=== PATIENT | female | born 1985 | race Caucasian/White ===

== ENCOUNTER 2017-02-21 00:48 | Observation (INO) | payer MEDICAID, OTHER ==
[~2017-02-21] VITALS: Ht 165.1 cm; Wt 83.5 kg
[~2017-02-21 00:48] MED LIST: HYDR25TA PO; TNFMISC
[2017-02-21] MEDS ORDERED: PREN1TAB89 PO (01:52)
[2017-02-21 01:54] VITALS: BP 123/78
[2017-02-21 01:55] LABS: APPEARANCE,URINE TURBID (CLEAR); GLUCOSE, URINE (UA) NEGATIVE (NEGATIVE); KETONES,URINE NEGATIVE (NEGATIVE); LEUKOCYTE ESTERASE ,URINE NEGATIVE (NEGATIVE); OCCULT BLOOD,URINE NEGATIVE (NEGATIVE); PROTEIN,URINE NEGATIVE (NEGATIVE)
[2017-02-21 01:57] LABS: ADD UA MICROSCOPIC NO
== END 2017-02-21 03:30 | disposition left against medical advice (07) ==
LOC: 4S 00:48
PROVIDERS: ADMIT Obstetrics & Gynecology; ATTEND Obstetrics & Gynecology
DX: O26.892 Other specified pregnancy related conditions, second trimester (principal); R10.9 Unspecified abdominal pain; Z3A.21 21 weeks gestation of pregnancy
CPT/HCPCS: 36415; 59025; 76815; 80307 ×8; 81003; 89060; G0378

== ENCOUNTER 2017-02-24 05:25 | Observation (INO) | payer MEDICAID ==
[~2017-02-24] VITALS: Ht 165 cm; Wt 83.5 kg
[~2017-02-24 05:25] MED LIST changes: -HYDR25TA PO; +PREN1TAB89 PO
[2017-02-24] MEDS ORDERED: OXYTOCIN 30 UNITS/LACT RINGERS 500 ML IV ONE (05:48)
[2017-02-24] MEDS ORDERED: FentaNYL CITRATE-PF 100 MCG/2 ML VIAL ONE (05:53)
[2017-02-24] MEDS: FentaNYL CITRATE-PF 100 MCG/2 ML VIAL IVP PRN ×2 (05:57→05:58)
[2017-02-24] MEDS: RINGERS SOLUTION,LACTATED 1,000 ML IV SCH ×2 (05:58→06:37)
[2017-02-24] MEDS ORDERED: CITRIC ACID/SODIUM CITRATE 30 ML SOLUTION UDCUP PO PRN (06:00)
[2017-02-24] MEDS ORDERED: METOCLOPRAMIDE HCL 5 MG/ML 2 ML VIAL IVP PRN (06:00)
[2017-02-24 06:26] LABS: HEMATOCRIT 34.5 % (36-46); HEMOGLOBIN 11.4 g/dL (12.0-16.0); MEAN CORPUSCULAR HEMOGLOBIN 26.7 pg (26.0-34.0); MEAN CORPUSCULAR HGB CONC 33.1 G/dL (31.0-37.0); MEAN CORPUSCULAR VOLUME 81 fL (80-100); RED BLOOD CELL COUNT(AUTO) 4.28 MIL/uL (4.00-5.20); RED CELL DISTRIBUTION WIDTH 18.1 % (11.5-14.5)
[2017-02-24 06:30] LABS: WHITE BLOOD COUNT (AUTO) 42.5 K/uL (4.5-11.0)
[2017-02-24] MEDS ORDERED: DEXTROSE 5% IV ONE (06:45)
[2017-02-24] MEDS ORDERED: WATER IV ONE (06:45)
[2017-02-24] MEDS ORDERED: GENTAMICIN SULFATE IV ONE (06:45)
[2017-02-24] MEDS ORDERED: AMPICILLIN SODIUM 2 GM/NS 100 ML IV ONE (06:45)
[2017-02-24] MEDS ORDERED: ONDANSETRON HCL 4 MG/2 ML VIAL IVP PRN (07:00)
[2017-02-24 07:06] LABS: BAND NEUTROPHILS % (MANUAL) 31 % (1-5); LYMPHOCYTES % (MANUAL) 1 % (22-44); REACTIVE LYMPHOCYTES 1 % (0-0); TOTAL CELLS COUNTED 100
[2017-02-24 07:08] LABS: RBC MORPHOLOGY COMMENT ABNORMAL RBC MORPH; WBC MORPHOLOGY TOXIC GRANULATION
[2017-02-24] MEDS ORDERED: OXYGEN THERAPY IH SCH ×2 (08:00)
[2017-02-24] MEDS ORDERED: LANOLIN 7 GM OINTMENT TP PRN (08:30)
[2017-02-24] MEDS ORDERED: IBUPROFEN 600 MG TABLET PO PRN (08:30)
[2017-02-24] MEDS ORDERED: GLYCERIN/WITCH HAZEL LEAF 40 PADS JAR TP PRN (08:30)
[2017-02-24] MEDS ORDERED: OxyCODONE HCL/ACETAMINOPHEN 5-325 MG TABLET PO PRN ×2 (08:30)
[2017-02-24] MEDS ORDERED: BENZOCAINE 20%/MENTHOL 56 GM SPRAY CANISTER TP PRN (08:30)
[2017-02-24] MEDS ORDERED: MEASLES/MUMPS/RUBELLA VACCINE, LIVE 0.5 ML/VIAL SQ ONE (08:30)
[2017-02-24] MEDS ORDERED: RINGERS SOLUTION,LACTATED 1,000 ML IV ONE (08:30)
[2017-02-24] MEDS ORDERED: MAGNESIUM HYDROXIDE SUSPENSION 30 ML UDCUP PO SCH (09:00)
[2017-02-24] MEDS ORDERED: MIDAZOLAM HCL 2 MG/2 ML VIAL IVP ONE (11:29)
[2017-02-24] MEDS ORDERED: KETAMINE HCL 50 MG/ML 10 ML VIAL IVP ONE (11:29)
[2017-02-24] MEDS ORDERED: OXYTOCIN 10 UNITS/ML VIAL IM ONE (11:29)
[2017-02-24 17:26] LABS: RUBELLA SCREEN (IGG) IMMUNE (IMMUNE)
== END 2017-02-24 11:30 | disposition left against medical advice (07) ==
LOC: 4S 05:25
PROVIDERS: ADMIT Obstetrics & Gynecology; ATTEND Obstetrics & Gynecology
DX: O42.912 Preterm premature rupture of membranes, unspecified as to length of time between rupture and onset of labor, second trimester (principal); O41.1220 Chorioamnionitis, second trimester, not applicable or unspecified; Z3A.21 21 weeks gestation of pregnancy; Z37.1 Single stillbirth
CPT/HCPCS: 36415; 59409; 85025; 86592; 86762; 86850; 86900; 86901; 87340; 88307; 96365; 96367; G0378; J0290; J1580; J2250; J2590; J3010; J3490; J7060; J7120

== ENCOUNTER 2017-02-26 18:40 | Inpatient (IN) | payer MEDICAID ==
[~2017-02-26] VITALS: Ht 165.1 cm; Wt 85.7 kg
[2017-02-26] MEDS ORDERED: KETOROLAC TROMETHAMINE 30 MG/ML VIAL IVP ONE (19:45)
[2017-02-26] MEDS ORDERED: SODIUM CHLORIDE 0.9% 1,000 ML IV ONE (19:45)
[2017-02-26] MEDS ORDERED: VANCOMYCIN HCL 1 GM/D5% WATER 200 ML IV ONE (19:45)
[2017-02-26 20:28] LABS: BASOPHILS % (AUTO) 0.2 % (0.0-2.0); EOSINOPHILS % (AUTO) 2.3 % (1.0-6.0); HEMATOCRIT 32.4 % (36-46); HEMOGLOBIN 10.4 g/dL (12.0-16.0); LYMPHOCYTES # (AUTO) 1.7 K/uL (1.0-4.8); LYMPHOCYTES % (AUTO) 11.6 % (22.0-44.0); MEAN CORPUSCULAR HGB CONC 32.1 G/dL (31.0-37.0); MEAN CORPUSCULAR VOLUME 81 fL (80-100); MONOCYTES # (AUTO) 0.8 K/uL (0.1-1.0); MONOCYTES % (AUTO) 5.5 % (2.0-9.0); NEUTROPHILS # (AUTO) 12.1 K/uL (1.8-7.7); NEUTROPHILS % (AUTO) 80.4 % (40.0-70.0); PLATELET COUNT (AUTO) 255 K/uL (150-450); RED BLOOD CELL COUNT(AUTO) 4.01 MIL/uL (4.00-5.20)
[2017-02-26 20:35] LABS: ANION GAP 10 mmol/L (8-16); CALCIUM, TOTAL 8.5 mg/dL (8.8-10.5); CARBON DIOXIDE 25 mmol/L (22-29); CHLORIDE 103 mmol/L (98-107); CREATININE 0.63 mg/dL (0.60-1.30); GLOMERULAR FILTR. RATE CALC > 60 mL/min (>60); POTASSIUM 3.2 mmol/L (3.5-5.1); SODIUM SERUM 138 mmol/L (136-145); UREA NITROGEN, BLOOD 4 mg/dL (7-18)
[2017-02-26 20:37] LABS: LACTIC ACID 1.5 mmol/L (0.4-2.0)
[2017-02-26 20:44] LABS: ALANINE AMINOTRANSFERASE 12 U/L (12-78); ALBUMIN 2.5 g/dL (3.4-5.0); ASPARTATE AMINOTRANSFERASE 11 U/L (15-37); BILIRUBIN,TOTAL 0.2 mg/dL (0.1-1.0); TOTAL PROTEIN, SERUM 6.5 g/dL (6.4-8.2)
[2017-02-26 20:46] LABS: RBC MORPHOLOGY COMMENT ABNORMAL RBC MORPH
[2017-02-26] MEDS ORDERED: ACETAMINOPHEN 325 MG TABLET PO PRN ×2 (21:00→21:30)
[2017-02-26] MEDS ORDERED: ONDANSETRON HCL 4 MG/2 ML VIAL IVP PRN ×2 (21:00→21:30)
[2017-02-26] MEDS ORDERED: SODIUM CHLORIDE 0.9% 100 ML ONE (21:11)
[2017-02-26] MEDS ORDERED: IOVERSOL 350 MG/ML 100 ML VIAL ONE (21:11)
[2017-02-26] MEDS ORDERED: POTASSIUM CHL 10 MEQ/WATER 50 ML IV PRN (21:30)
[2017-02-26] MEDS ORDERED: OxyCODONE HCL/ACETAMINOPHEN 5-325 MG TABLET PO PRN (21:30)
[2017-02-26] MEDS ORDERED: MAGNESIUM HYDROXIDE SUSPENSION 30 ML UDCUP PO PRN (21:30)
[2017-02-26] MEDS ORDERED: VANCOMYCIN HCL 500 MG in DEXTROSE 5%-WATER 100 ML IV ONE (22:00)
[2017-02-26] MEDS: POTASSIUM CHLORIDE 20 MEQ ER TABLET PO PRN (22:25)
[2017-02-26] MEDS: OxyCODONE HCL/ACETAMINOPHEN 5-325 MG TABLET PO PRN (22:25)
[2017-02-26 22:34] VITALS: BP 130/79
[2017-02-27] MEDS ORDERED: PNEUMOCOCCAL VACCINE POLYVALENT 0.5 ML VIAL [PPSV23] IM ONE (02:00)
[2017-02-27] MEDS: DiphenhydrAMINE HCL 25 MG CAPSULE PO PRN ×3 (05:30→20:30)
[2017-02-27] MEDS: OxyCODONE HCL/ACETAMINOPHEN 5-325 MG TABLET PO PRN ×4 (05:30→20:30)
[2017-02-27 06:26] LABS: ANION GAP 8 mmol/L (8-16); CALCIUM, TOTAL 7.9 mg/dL (8.8-10.5); CARBON DIOXIDE 26 mmol/L (22-29); CHLORIDE 105 mmol/L (98-107); CREATININE 0.68 mg/dL (0.60-1.30); GLOMERULAR FILTR. RATE CALC > 60 mL/min (>60); POTASSIUM 3.2 mmol/L (3.5-5.1); SODIUM SERUM 139 mmol/L (136-145); UREA NITROGEN, BLOOD 6 mg/dL (7-18)
[2017-02-27 06:31] LABS: BASOPHILS % (AUTO) 0.3 % (0.0-2.0); EOSINOPHILS % (AUTO) 3.5 % (1.0-6.0); HEMATOCRIT 28.7 % (36-46); HEMOGLOBIN 9.2 g/dL (12.0-16.0); LYMPHOCYTES # (AUTO) 1.7 K/uL (1.0-4.8); LYMPHOCYTES % (AUTO) 15.2 % (22.0-44.0); MEAN CORPUSCULAR HGB CONC 31.9 G/dL (31.0-37.0); MEAN CORPUSCULAR VOLUME 82 fL (80-100); MONOCYTES # (AUTO) 0.7 K/uL (0.1-1.0); MONOCYTES % (AUTO) 6.3 % (2.0-9.0); NEUTROPHILS # (AUTO) 8.4 K/uL (1.8-7.7); NEUTROPHILS % (AUTO) 74.7 % (40.0-70.0); PLATELET COUNT (AUTO) 210 K/uL (150-450); RED BLOOD CELL COUNT(AUTO) 3.52 MIL/uL (4.00-5.20); RED CELL DISTRIBUTION WIDTH 18.1 % (11.5-14.5); WHITE BLOOD COUNT (AUTO) 11.2 K/uL (4.5-11.0)
[2017-02-27 07:10] VITALS: BP 147/111
[2017-02-27] MEDS: VANCOMYCIN HCL 1.5 GM in DEXTROSE 5%-WATER 250 ML IV SCH ×2 (07:54→15:34)
[2017-02-27] MEDS: PANTOPRAZOLE SODIUM 40 MG DR TABLET PO SCH (08:15)
[2017-02-27] MEDS: DOCUSATE SODIUM 100 MG CAPSULE PO SCH ×2 (08:15→20:30)
[2017-02-27] MEDS ORDERED: 0.9% SODIUM CHLORIDE 10 ML SYRINGE IVP PRN (11:00)
[2017-02-27 11:17] VITALS: BP 126/85
[2017-02-27] MEDS: POTASSIUM CHLORIDE 20 MEQ ER TABLET PO PRN ×2 (13:44→18:39)
[2017-02-27 15:11] VITALS: BP 154/96
[2017-02-27 19:46] VITALS: BP 136/87
[2017-02-28] MEDS: OxyCODONE HCL/ACETAMINOPHEN 5-325 MG TABLET PO PRN ×4 (00:32→14:11)
[2017-02-28] MEDS: VANCOMYCIN HCL 1.5 GM in DEXTROSE 5%-WATER 250 ML IV SCH ×3 (00:32→16:10)
[2017-02-28 00:39] VITALS: BP 140/91
[2017-02-28] MEDS: DiphenhydrAMINE HCL 25 MG CAPSULE PO PRN ×2 (03:59→12:30)
[2017-02-28 04:00] VITALS: BP 134/95
[2017-02-28 07:29] LABS: ANION GAP 6 mmol/L (8-16); CALCIUM, TOTAL 8.3 mg/dL (8.8-10.5); CARBON DIOXIDE 29 mmol/L (22-29); CHLORIDE 102 mmol/L (98-107); CREATININE 0.64 mg/dL (0.60-1.30); GLOMERULAR FILTR. RATE CALC > 60 mL/min (>60); POTASSIUM 3.7 mmol/L (3.5-5.1); SODIUM SERUM 137 mmol/L (136-145); UREA NITROGEN, BLOOD 5 mg/dL (7-18)
[2017-02-28 08:00] VITALS: BP 151/95
[2017-02-28] MEDS: DOCUSATE SODIUM 100 MG CAPSULE PO SCH (08:26)
[2017-02-28] MEDS: PANTOPRAZOLE SODIUM 40 MG DR TABLET PO SCH (08:26)
[2017-02-28 11:34] VITALS: BP 139/92
[2017-02-28 16:00] VITALS: BP 132/79
[2017-02-28 17:54] LABS: BASOPHILS % (AUTO) 0.5 % (0.0-2.0); EOSINOPHILS % (AUTO) 5.5 % (1.0-6.0); HEMATOCRIT 30.7 % (36-46); LYMPHOCYTES # (AUTO) 1.5 K/uL (1.0-4.8); LYMPHOCYTES % (AUTO) 21.7 % (22.0-44.0); MEAN CORPUSCULAR HEMOGLOBIN 26.2 pg (26.0-34.0); MEAN CORPUSCULAR HGB CONC 32.6 G/dL (31.0-37.0); MEAN CORPUSCULAR VOLUME 80 fL (80-100); MONOCYTES # (AUTO) 0.7 K/uL (0.1-1.0); MONOCYTES % (AUTO) 10.5 % (2.0-9.0); NEUTROPHILS # (AUTO) 4.3 K/uL (1.8-7.7); NEUTROPHILS % (AUTO) 61.8 % (40.0-70.0); PLATELET COUNT (AUTO) 260 K/uL (150-450); RED BLOOD CELL COUNT(AUTO) 3.82 MIL/uL (4.00-5.20); RED CELL DISTRIBUTION WIDTH 16.8 % (11.5-14.5); WHITE BLOOD COUNT (AUTO) 6.9 K/uL (4.5-11.0)
[2017-02-28 18:05] LABS: ANION GAP 5 mmol/L (8-16); CALCIUM, TOTAL 8.4 mg/dL (8.8-10.5); CARBON DIOXIDE 30 mmol/L (22-29); CHLORIDE 101 mmol/L (98-107); CREATININE 0.64 mg/dL (0.60-1.30); GLOMERULAR FILTR. RATE CALC > 60 mL/min (>60); POTASSIUM 3.7 mmol/L (3.5-5.1); SODIUM SERUM 136 mmol/L (136-145); UREA NITROGEN, BLOOD 7 mg/dL (7-18)
[2017-02-28] MEDS ORDERED: PERCT PO (18:09)
[2017-02-28 18:10] LABS: ALANINE AMINOTRANSFERASE 16 U/L (12-78); ALBUMIN 2.4 g/dL (3.4-5.0); ASPARTATE AMINOTRANSFERASE 13 U/L (15-37); BILIRUBIN,TOTAL 0.3 mg/dL (0.1-1.0); TOTAL PROTEIN, SERUM 6.3 g/dL (6.4-8.2)
[2017-02-28] MEDS ORDERED: DOXY150T PO (18:10)
== END 2017-02-28 19:19 | disposition home or self-care (01) | DRG 383 ==
LOC: EMS 18:41 → 6N 20:30 → 4E 02-27 14:00
PROVIDERS: ADMIT Internal Medicine; ATTEND Internal Medicine
DX: L03.114 Cellulitis of left upper limb (principal); E43 Unspecified severe protein-calorie malnutrition; E87.6 Hypokalemia; D64.9 Anemia, unspecified; Z68.31 Body mass index [BMI] 31.0-31.9, adult; M79.671 Pain in right foot
CPT/HCPCS: 73201; 83605; 84132; 87081; 96365; 96366; 96375; 99285; J1885; J3370; J7030; J7050; J7060